=== PATIENT | female | born 1960 | race Caucasian/White ===

== ENCOUNTER 2021-01-07 15:06 | Inpatient (IN) | payer MEDICARE, BC ==
[~2021-01-07] VITALS: Ht 154.9 cm; Wt 40.8 kg
--- NOTE | 2021-01-07 15:20 | NUR ---
Patient is in room 5. She is awake and alert. Sitter/observer at bedside.
[2021-01-07] MEDS ORDERED: ARIPIPRAZOLE 5 MG TABLET PO ONE (15:30)
[2021-01-07] MEDS ORDERED: ARIPIPRAZOLE 5 MG TABLET ONE (15:33)
[2021-01-07] MEDS ORDERED: CRAN425C6 PO (15:41)
[2021-01-07] MEDS ORDERED: BISA10SU61 RC (15:41)
[2021-01-07] MEDS ORDERED: ARIP5TAB10 PO (15:41)
[2021-01-07] MEDS ORDERED: DOCU100C36 PO (15:41)
[2021-01-07] MEDS ORDERED: LORA-258 PO (15:41)
[2021-01-07] MEDS ORDERED: CYCL5TAB PO (15:41)
[2021-01-07 15:43] LABS: HEMATOCRIT 39.5 % (31.2-41.9); MEAN CORPUSCULAR HEMOGLOBIN 30.3 uug (24.7-32.8); MEAN CORPUSCULAR VOLUME 87.7 fL (75.5-95.3); PLATELET COUNT (AUTO) 187 K/uL (179-408)
[2021-01-07 15:49] LABS: ETHANOL < 3 MG/DL (0-0)
[2021-01-07 15:58] LABS: CARBON DIOXIDE 25 mmol/L (21-32); CHLORIDE 102 mmol/L (98-107); GLUCOSE 146 mg/dL (74-106); POTASSIUM 3.5 mmol/L (3.5-5.1); UREA NITROGEN, BLOOD 26 mg/dL (7-18)
--- NOTE | 2021-01-07 15:58 | NUR ---
Covid swab sent to lab
[2021-01-07 16:02] LABS: ALANINE AMINOTRANSFERASE 17 U/L (14-59); ALKALINE PHOSPHATASE 86 U/L (50-136); ASPARTATE AMINOTRANSFERASE 9 U/L (15-37); BILIRUBIN,DIRECT 0.1 mg/dL (0.0-0.2); BILIRUBIN,TOTAL 0.3 mg/dL (0.2-1.0); TOTAL PROTEIN, SERUM 6.6 g/dL (6.4-8.2)
[2021-01-07 16:03] LABS: ACETAMINOPHEN < 2.0 ug/mL (10-30)
[2021-01-07] MEDS ORDERED: METH10TA2 PO (16:07)
[2021-01-07] MEDS ORDERED: ACET-2154 PO (16:07)
[2021-01-07] MEDS ORDERED: NA P133E RC (16:07)
[2021-01-07] MEDS ORDERED: MIRT-121 PO (16:07)
[2021-01-07] MEDS ORDERED: MAGN400O6 PO (16:07)
[2021-01-07] MEDS ORDERED: MAG-55 PO (16:07)
[2021-01-07] MEDS ORDERED: HYDR200T81 PO (16:07)
[2021-01-07] MEDS ORDERED: ALPR0.5T8 PO (16:07)
[2021-01-07] MEDS ORDERED: TEMA7.5C PO (16:07)
[2021-01-07] MEDS ORDERED: CARB15DR EACHEYE (16:07)
--- NOTE | 2021-01-07 16:49 | NUR ---
Patient ate some crackers and drank juice. Will call crisis team for eval. Sitter/observer still at bedside
--- NOTE | 2021-01-07 16:50 | NUR ---
Patient states some people are trying to "poison me with ricin"
--- NOTE | 2021-01-07 17:15 | NUR ---
I called Noemi from crisis team and spoke to her about need for psych eval. She will be arriving today for eval
[2021-01-07] MEDS ORDERED: ACETAMINOPHEN 325 MG TABLET PO PRN (18:30)
[2021-01-07] MEDS ORDERED: MAGNESIUM HYDROXIDE 30 ML LIQUID UDC PO PRN ×2 (18:30→21:45)
[2021-01-07] MEDS ORDERED: BISACODYL 10 MG SUPP.RECT RC PRN (18:30)
[2021-01-07] MEDS ORDERED: ALPRAZOLAM 0.25 MG TABLET PO ONE (18:45)
--- NOTE | 2021-01-07 18:50 | NUR ---
Patient is sitting up eating dinner. She states she is very nervous and is shaky. I notifed Marta Montero given as ordered
[2021-01-07] MEDS ORDERED: ALPRAZOLAM 0.5 MG TABLET ONE (18:52)
--- NOTE | 2021-01-07 19:02 | NUR ---
Noemi RN here for karlee blancas
--- NOTE | 2021-01-07 19:19 | NUR ---
Hand off report given to Vida
--- NOTE | 2021-01-07 19:25 | NUR ---
Pt. is awake, alert, and cooperative. Food and water provided. Sitter/observer at bedside.
[2021-01-07 20:00] VITALS: BP 120/72
--- NOTE | 2021-01-07 20:00 | NUR ---
Pt. resting. Sitter at bedside. Vss. Will continue to monitor.
--- NOTE | 2021-01-07 20:40 | NUR ---
Leda abel in [facility] - 01/07/21 at 2157 by GIOVANNY Report called to RN. Sanjiv
--- NOTE | 2021-01-07 20:40 | NUR ---
Report called to GRISELDA Keys.
[2021-01-07] MEDS ORDERED: BLOOD SUGAR DIAGNOSTIC 1 EACH STRIP VI ONE (21:45)
[2021-01-07] MEDS ORDERED: MAG HYDROX/AL HYDROX/SIMETH 30 ML LIQUID UDC PO PRN (21:45)
--- NOTE | 2021-01-07 21:50 | NUR ---
ADMITTED PATIENT IN MHU UNIT WITH DX OF PSYCHOSIS, 72 HOLD FOR GD, BELIEVES THAT THE NEIGHBORS ARE POISONING HER WITH RICIN, PARANOID/ DELUSIONAL. PATIENT ATTEMPTED TO AWOL FROM REHAB. PATIENT ALERT X3, AMBULATORY, CONTINENT, ISOLATIVE, REFUSED A FULL BODY CHECK. PATIENT STAYED IN HER ROOM, CALM AT THIS TIME, CONT TO MONITOR.
[2021-01-07] MEDS: METHADONE HCL 10 MG TABLET PO SCH (22:24)
[2021-01-08 08:23] VITALS: BP 96/59
[2021-01-08] MEDS: METHADONE HCL 10 MG TABLET PO SCH ×2 (08:34→20:41)
[2021-01-08] MEDS: DOCUSATE SODIUM 100 MG CAPSULE PO SCH (08:35)
[2021-01-08] MEDS: LORAZEPAM 0.5 MG TABLET PO PRN ×2 (08:42→15:20)
[2021-01-08] MEDS: HYDROXYCHLOROQUINE SULFATE 200 MG TABLET PO SCH (08:50)
[2021-01-08] MEDS: POLYVINYL ALCOHOL OPHT DROPS 15 ML BOTTLE OP SCH ×2 (09:24→16:35)
[2021-01-08] MEDS: CYCLOBENZAPRINE HCL 10 MG TABLET PO PRN ×2 (13:18→20:42)
[2021-01-08] MEDS ORDERED: VITAMINS A AND D OINT TP PRN (13:30)
--- NOTE | 2021-01-08 15:21 | NUR ---
Gps/Relay Engineer- Anxious, noted patient talking to herself, claimed she's trying to calm herself down. . Tends to closed her door, discouraged from doing so. Patient complained pain on her left sacrum area, noted redness, and small bump. requesting A&D aurelio. , encouraged pressure relief, stay off her back.
[2021-01-08 17:15] VITALS: BP 119/74
[2021-01-08] MEDS: ALPRAZOLAM 0.5 MG TABLET PO SCH (17:39)
[2021-01-08] MEDS: ARIPIPRAZOLE 5 MG TABLET PO SCH (18:45)
[2021-01-08] MEDS: MIRTAZAPINE 15 MG TABLET PO SCH (20:40)
[2021-01-08 21:55] VITALS: BP 106/55
[2021-01-08] MEDS: TEMAZEPAM 7.5 MG CAPSULE PO PRN (22:06)
[2021-01-09] MEDS: LORAZEPAM 0.5 MG TABLET PO PRN ×3 (02:26→18:19)
--- NOTE | 2021-01-09 04:52 | NUR ---
This patient has been requesting a continuos flow of PRN medications during the shift. Multiple complaints of pain and anxiety. This appeals writer is monitoring the patient closely and encouraging alternatives methods to pain relief other than narcotics. Patient continues to have delusional thinking that she is being poisoned by the neighbors with "Ricin ". With safety a priority, this appeals writer will also continue providing reality checks and discourage fixed delusions when needed.
--- NOTE | 2021-01-09 06:48 | NUR ---
Patient refused lab draw and shower this am. Total sleep hours were 5.00. Still with delusions but no behavior escalation. Monitoring pain and for safety.
[2021-01-09 07:30] VITALS: BP 108/70
[2021-01-09] MEDS: ALPRAZOLAM 0.5 MG TABLET PO SCH ×2 (08:17→16:30)
[2021-01-09] MEDS: METHADONE HCL 10 MG TABLET PO SCH ×2 (08:17→20:13)
[2021-01-09] MEDS: POLYVINYL ALCOHOL OPHT DROPS 15 ML BOTTLE OP SCH ×2 (08:17→16:30)
[2021-01-09] MEDS: HYDROXYCHLOROQUINE SULFATE 200 MG TABLET PO SCH ×2 (08:17→08:24)
[2021-01-09] MEDS: DOCUSATE SODIUM 100 MG CAPSULE PO SCH (08:17)
[2021-01-09] MEDS: ARIPIPRAZOLE 5 MG TABLET PO SCH (08:18)
[2021-01-09] MEDS: CYCLOBENZAPRINE HCL 10 MG TABLET PO PRN ×2 (10:01→18:19)
--- NOTE | 2021-01-09 14:00 | NUR ---
Gps/Medical Massage Therapist- Patient claimed she needs to be on stronger pain medication and should be available all the time. Informed patient she is on methadone q 12 hours, , and can have flexeril 5 mg po as needed, reviewed all medications , verbalized understanding. Gets anxious easily, but redirectable, staying in her room most of the time. Tend s to close her door, discouraged from doing so.
[2021-01-09 20:05] VITALS: BP 126/78
[2021-01-09] MEDS: MIRTAZAPINE 15 MG TABLET PO SCH (20:13)
[2021-01-09] MEDS: TEMAZEPAM 7.5 MG CAPSULE PO PRN (22:42)
[2021-01-10] MEDS: LORAZEPAM 0.5 MG TABLET PO PRN (05:14)
[2021-01-10] MEDS: CYCLOBENZAPRINE HCL 10 MG TABLET PO PRN ×2 (05:14→14:42)
--- NOTE | 2021-01-10 06:37 | NUR ---
Patient was medication seeking throughout the shift. Sleep hours were only 2.00 This patient had high energy and has a fixed delusion of people poisoning her " Even in the hospital. They are all around us . This is real ". This greeting card writer provided reassurance and encouraged reality based conversation. Continuing to monitor the patients pain and monitor her for safety.
[2021-01-10 07:30] VITALS: BP 113/68
[2021-01-10] MEDS: HYDROXYCHLOROQUINE SULFATE 200 MG TABLET PO SCH (09:25)
[2021-01-10] MEDS: METHADONE HCL 10 MG TABLET PO SCH ×2 (09:25→20:10)
[2021-01-10] MEDS: ALPRAZOLAM 0.5 MG TABLET PO SCH ×2 (09:25→16:48)
[2021-01-10] MEDS: DOCUSATE SODIUM 100 MG CAPSULE PO SCH (09:25)
[2021-01-10] MEDS: ARIPIPRAZOLE 5 MG TABLET PO SCH ×4 (09:25→20:15)
[2021-01-10] MEDS: POLYVINYL ALCOHOL OPHT DROPS 15 ML BOTTLE OP SCH ×2 (09:26→16:54)
[2021-01-10] MEDS: ENSURE ENLIVE (VAN) 240 ML LIQUID PO SCH ×2 (13:10→16:48)
--- NOTE | 2021-01-10 13:11 | NUR ---
PATIENT SEEN AND EXAMINED BY DR LEE WITH NEW ORDERS TO START 14 DAY HOLD AND NOTED
[2021-01-10 15:29] VITALS: BP 125/81
--- NOTE | 2021-01-10 15:35 | NUR ---
JOSE ROBERTO Initial Discharge Plan: Patient was recently residing at [facility] [address] [place] [address] ([phone]). Patient's father Vishnu Ren ([phone]) is involved in the patient's care. JOSE ROBERTO spoke with Madeleine sustainable design coordinator at [facility] who stated that they cannot accommodate the patient back at this time. JOSE ROBERTO will continue to work with patient, family and MD to ensure a safe and proper discharge plan.
--- NOTE | 2021-01-10 15:42 | NUR ---
Firearms Report: Loss Control Consultant completed and submitted a [employer] firearms report for 5150 grave disability certifications. A copy of report has been placed in patient chart.
--- NOTE | 2021-01-10 16:04 | NUR ---
REYMUNDO STINSON CLINICAL ENGINEERING MANAGER HERE SEEN PATIENT WITH NEW ORDERS AND NOTED
--- NOTE | 2021-01-10 17:23 | NUR ---
REMAIN COMPLIANT WITH MEDICATIONS AND CARE COOPERATIVE ALERT AND ORIENTED WILL CONTINUE TO OBSERVE.
[2021-01-10] MEDS: MIRTAZAPINE 15 MG TABLET PO SCH (20:09)
[2021-01-10 20:11] VITALS: BP 117/77
[2021-01-11] MEDS: TEMAZEPAM 7.5 MG CAPSULE PO PRN ×2 (00:07→22:14)
[2021-01-11] MEDS: LORAZEPAM 0.5 MG TABLET PO PRN ×2 (04:19→12:00)
--- NOTE | 2021-01-11 05:17 | NUR ---
1930 ASSUMED CARE OF PATIENT. PATIENT ALERT AND ORIENTED TIMES 3. VITAL SIGNS STABLE. PATIENT HAS PAIN 8/10 GIVEN [facility] SCHEDULED FOR PAIN. 2100 PATIENT COMPLIANT WITH ALL MEDICATIONS. PATIENT KICKING ON WALL AND STATES "THEY ARE UP THERE MAKING SUCH A RACKET ON THE ROOF." 0419 PATIENT UP MOST OF THE NIGHT PACING IN [place] AND KICKING THE WALL. PATIENT STATES "THEY'RE ARE PEOPLE OUT THERE FILMING ME. THERE IS A SILVER FACE LOOKING AT ME. ALL NIGHT THE DRONES HAVE BEEN FILMING ME AND THEY KEEP MAKING ALL THIS NOISE. PATIENT GIVEN ATIVAN PER DR ORDERS FOR ANXIETY. 0500 PATIENT IN BED RESTING AT THIS TIME WITH NO SIGN OR SYMPTOMS AT THIS TIME.
[2021-01-11 07:30] VITALS: BP 114/69
[2021-01-11] MEDS: DOCUSATE SODIUM 100 MG CAPSULE PO SCH (08:46)
[2021-01-11] MEDS: METHADONE HCL 10 MG TABLET PO SCH ×2 (08:46→20:42)
[2021-01-11] MEDS: ALPRAZOLAM 0.5 MG TABLET PO SCH ×2 (08:46→17:38)
[2021-01-11] MEDS: POLYVINYL ALCOHOL OPHT DROPS 15 ML BOTTLE OP SCH ×2 (08:46→17:38)
[2021-01-11] MEDS: ARIPIPRAZOLE 5 MG TABLET PO SCH ×4 (08:47→20:38)
[2021-01-11] MEDS: HYDROXYCHLOROQUINE SULFATE 200 MG TABLET PO SCH (08:48)
[2021-01-11] MEDS: ENSURE ENLIVE (VAN) 240 ML LIQUID PO SCH ×3 (08:48→17:33)
--- NOTE | 2021-01-11 10:30 | NUR ---
Pt states that she had x4 diarrhea. Asking for a medication to stop her diarrhea.
--- NOTE | 2021-01-11 11:30 | NUR ---
Spoke With ÁNGELA BLACK. instructed pt that i will give her her immodium if i see her diarrhea that she is claiming. secondary to questionable diarrhea earlier - no smell in room , no streak of bm from toilet. Spoke with PULP MILL TEAM LEADER to check pt's claim of diarrhea. Pt aware that she needs to show her BMs
[2021-01-11] MEDS: CYCLOBENZAPRINE HCL 10 MG TABLET PO PRN (12:00)
[2021-01-11 15:18] VITALS: BP 137/87
--- NOTE | 2021-01-11 18:30 | NUR ---
No BMs seen. PT hyperverbal and pacing in hallway.
[2021-01-11] MEDS: MIRTAZAPINE 15 MG TABLET PO SCH (20:38)
[2021-01-11 20:51] VITALS: BP 104/63
--- NOTE | 2021-01-12 06:25 | NUR ---
Patient slept approximately 7 hours.No c/o diarrhea.No behavioral issues noted.
[2021-01-12 07:30] VITALS: BP 113/70
[2021-01-12] MEDS: ALPRAZOLAM 0.5 MG TABLET PO SCH ×2 (08:07→16:50)
[2021-01-12] MEDS: HYDROXYCHLOROQUINE SULFATE 200 MG TABLET PO SCH (08:07)
[2021-01-12] MEDS: METHADONE HCL 10 MG TABLET PO SCH ×2 (08:07→20:07)
[2021-01-12] MEDS: DOCUSATE SODIUM 100 MG CAPSULE PO SCH (08:07)
[2021-01-12] MEDS: POLYVINYL ALCOHOL OPHT DROPS 15 ML BOTTLE OP SCH ×2 (08:08→16:51)
[2021-01-12] MEDS: ARIPIPRAZOLE 5 MG TABLET PO SCH ×3 (08:08→16:51)
[2021-01-12] MEDS: ENSURE ENLIVE (VAN) 240 ML LIQUID PO SCH ×3 (08:09→16:51)
[2021-01-12] MEDS: CYCLOBENZAPRINE HCL 10 MG TABLET PO PRN (08:56)
[2021-01-12] MEDS ORDERED: ARIPIPRAZOLE 5 MG TABLET PO ONE (09:45)
--- NOTE | 2021-01-12 09:53 | NUR ---
JOSE ROBERTO Individual Intervention: SW met with patient's today for brief individual counseling to address patient's presenting problem paranoid thought process. Patient presents with anxious mood and congruent affect. Patient is fidgety and stating that her roommate is "making me anxious". Patient isolating herself in her room and refusing to join group activities. SW will continue to remain available for patient for continued supportive counseling.
--- NOTE | 2021-01-12 11:27 | NUR ---
Court Hearing: Patient's court hearing for 6840 was today and it was upheld for GD.
[2021-01-12] MEDS: LORAZEPAM 0.5 MG TABLET PO PRN (13:37)
[2021-01-12] MEDS: LOPERAMIDE HCL 2 MG CAPSULE PO PRN ×2 (15:13→22:18)
[2021-01-12 16:00] VITALS: BP 125/82
[2021-01-12] MEDS: MIRTAZAPINE 15 MG TABLET PO SCH (20:07)
[2021-01-12 20:22] VITALS: BP 115/72
[2021-01-12] MEDS: TEMAZEPAM 7.5 MG CAPSULE PO PRN (22:18)
--- NOTE | 2021-01-13 06:24 | NUR ---
Pt slept a total of 3.30 hours. Denies SOB or discomfort at this time. Exhibited drug seeking behavior, requesting all PRNs and complaining that we do not give her enough medication. Otherwise pleasant and cooperative. Denies SI or HI. Safety and comfort provided throughout the night. No other issues or concerns at this time, will endorse to day shift.
[2021-01-13 07:30] VITALS: BP 118/69
[2021-01-13] MEDS: DOCUSATE SODIUM 100 MG CAPSULE PO SCH (08:24)
[2021-01-13] MEDS: HYDROXYCHLOROQUINE SULFATE 200 MG TABLET PO SCH (08:24)
[2021-01-13] MEDS: ARIPIPRAZOLE 5 MG TABLET PO SCH ×3 (08:24→16:29)
[2021-01-13] MEDS: ALPRAZOLAM 0.5 MG TABLET PO SCH (08:24)
[2021-01-13] MEDS: METHADONE HCL 10 MG TABLET PO SCH ×2 (08:25→20:19)
[2021-01-13] MEDS: POLYVINYL ALCOHOL OPHT DROPS 15 ML BOTTLE OP SCH ×2 (08:28→16:29)
[2021-01-13] MEDS: ENSURE ENLIVE (VAN) 240 ML LIQUID PO SCH ×3 (08:29→16:29)
--- NOTE | 2021-01-13 09:47 | NUR ---
JOSE ROBERTO SNF Referral: JOSE ROBERTO faxed patient's referral packet to [address] [address] ( ). JOSE ROBERTO spoke with Susanne stockroom coordinator at the facility who will review referral.
[2021-01-13] MEDS: CYCLOBENZAPRINE HCL 10 MG TABLET PO PRN (10:15)
[2021-01-13] MEDS: BENZTROPINE MESYLATE 0.5 MG TABLET PO SCH ×3 (10:15→16:29)
[2021-01-13 16:00] VITALS: BP 114/71
--- NOTE | 2021-01-13 18:52 | NUR ---
Gps/Car Body Designer- Called Dr Peterson re- patient requesting to have her clonopin now instead of bedtime claimed " this is bedtime call my Psychiatrist now" in demanding mood. explained to patient , anxious , does not want to accept explanation .
[2021-01-13 20:13] VITALS: BP 116/70
[2021-01-13] MEDS: MIRTAZAPINE 15 MG TABLET PO SCH (20:19)
[2021-01-13] MEDS: CLONAZEPAM 0.5 MG TABLET PO PRN (20:19)
--- NOTE | 2021-01-14 06:26 | NUR ---
pt slept for 7 hours; initially asking for klonopin at start of shift; continue to monitor; continue plan of care.
[2021-01-14] MEDS: HYDROXYCHLOROQUINE SULFATE 200 MG TABLET PO SCH (08:32)
[2021-01-14] MEDS: METHADONE HCL 10 MG TABLET PO SCH ×2 (08:33→20:11)
[2021-01-14] MEDS: ARIPIPRAZOLE 5 MG TABLET PO SCH ×3 (08:33→16:54)
[2021-01-14] MEDS: BENZTROPINE MESYLATE 0.5 MG TABLET PO SCH ×3 (08:33→16:54)
[2021-01-14] MEDS: DOCUSATE SODIUM 100 MG CAPSULE PO SCH (08:39)
[2021-01-14] MEDS: POLYVINYL ALCOHOL OPHT DROPS 15 ML BOTTLE OP SCH ×2 (08:39→16:59)
[2021-01-14 08:43] VITALS: BP 121/83
[2021-01-14] MEDS: ENSURE ENLIVE (VAN) 240 ML LIQUID PO SCH ×3 (09:12→16:57)
[2021-01-14] MEDS: CLONAZEPAM 0.5 MG TABLET PO SCH ×2 (12:15→16:55)
--- NOTE | 2021-01-14 13:30 | NUR ---
Gps/Residential Carpenter- Patient anxious, but redirectable, worried , that she does not have clonopin po. during the day , patient was reassured , was informed Dr Peterson will take care of all her concerns . Encouraged attending her group therapy .
--- NOTE | 2021-01-14 14:39 | NUR ---
JOSE ROBERTO Family Contact: SW spoke with patient's father, Dr. Ren ([phone]) with Dr. Peterson and discussed treatment and discharge plan. Dr. Peterson informed Dr. Ren that patient may return home if patient is stable enough or may require a short term SNF placement. Dr. Ren is agreeable with both plans.
[2021-01-14 17:07] VITALS: BP 106/69
[2021-01-14] MEDS: MIRTAZAPINE 15 MG TABLET PO SCH (20:07)
[2021-01-14 20:15] VITALS: BP 103/69
[2021-01-14] MEDS: CLONAZEPAM 0.5 MG TABLET PO PRN (22:47)
--- NOTE | 2021-01-15 05:31 | NUR ---
Pt asleep at this time, no s/s of distress, no change in LOC. Manifested relief of pain after interventions. Requested Klonopin PRN--administered per MD order. Pt able to sleep well during the shift. Q15min checks done to ensure safety.
[2021-01-15 07:57] VITALS: BP 99/55
[2021-01-15] MEDS: HYDROXYCHLOROQUINE SULFATE 200 MG TABLET PO SCH (08:45)
[2021-01-15] MEDS: DOCUSATE SODIUM 100 MG CAPSULE PO SCH (08:46)
[2021-01-15] MEDS: CLONAZEPAM 0.5 MG TABLET PO SCH ×3 (08:46→16:46)
[2021-01-15] MEDS: METHADONE HCL 10 MG TABLET PO SCH ×2 (08:46→20:50)
[2021-01-15] MEDS: ARIPIPRAZOLE 5 MG TABLET PO SCH ×3 (08:47→16:47)
[2021-01-15] MEDS: BENZTROPINE MESYLATE 0.5 MG TABLET PO SCH ×3 (08:47→16:46)
[2021-01-15] MEDS: ENSURE ENLIVE (VAN) 240 ML LIQUID PO SCH ×3 (08:48→16:47)
[2021-01-15] MEDS: POLYVINYL ALCOHOL OPHT DROPS 15 ML BOTTLE OP SCH ×2 (08:48→16:47)
[2021-01-15 16:48] VITALS: BP 105/60
[2021-01-15 19:51] VITALS: BP 101/53
[2021-01-15] MEDS: MIRTAZAPINE 15 MG TABLET PO SCH (20:47)
[2021-01-15] MEDS: CLONAZEPAM 0.5 MG TABLET PO PRN (22:24)
--- NOTE | 2021-01-16 05:56 | NUR ---
Received Pt awake in bed, pleasant and polite on approach. Pt was alert and oriented x3 but gave minimal disclosure. Pt exhibited guarded affect and and appeared hypervigilant at times during the initial assessment. About 30 minutes later, EVS came into her room to clean the other bed, and Pt became aggressive and upset with him. When staff entered the room, Pt told this conventional underwriter "you are sending in your people to clean this place with ricin! You want to poison me!" When redirection was attempted, Pt accused this write of filming her and "being one of them". Pt was paranoid, delusional, and accusatory toward staff and yelled that she "does not want a roommate". On the 3rd encounter with the Pt, she was again polite and in a good mood. Mood is labile, and appears internally preoccupied, but denies AH/VH. Denies SI/HI and verbally contracts for safety. VS stable, chronic pain effectively controlled with Methadone. Klonopin 0.5mg administered for anxiety.
[2021-01-16 07:30] VITALS: BP 92/54
[2021-01-16 07:59] LABS: CREATININE 0.8 mg/dL (0.6-1.3); POTASSIUM 4.8 mmol/L (3.5-5.1)
[2021-01-16] MEDS: ARIPIPRAZOLE 5 MG TABLET PO SCH ×3 (08:46→16:25)
[2021-01-16] MEDS: HYDROXYCHLOROQUINE SULFATE 200 MG TABLET PO SCH (08:46)
[2021-01-16] MEDS: POLYVINYL ALCOHOL OPHT DROPS 15 ML BOTTLE OP SCH ×2 (08:46→16:25)
[2021-01-16] MEDS: METHADONE HCL 10 MG TABLET PO SCH ×2 (08:47→20:14)
[2021-01-16] MEDS: BENZTROPINE MESYLATE 0.5 MG TABLET PO SCH ×3 (08:47→16:25)
[2021-01-16] MEDS: CLONAZEPAM 0.5 MG TABLET PO SCH ×3 (08:47→16:25)
[2021-01-16] MEDS: ENSURE ENLIVE (VAN) 240 ML LIQUID PO SCH ×3 (08:47→16:25)
[2021-01-16] MEDS: DOCUSATE SODIUM 100 MG CAPSULE PO SCH (08:48)
[2021-01-16 15:17] VITALS: BP 117/71
[2021-01-16] MEDS: MIRTAZAPINE 15 MG TABLET PO SCH (20:14)
[2021-01-16 20:16] VITALS: BP 111/70
[2021-01-16] MEDS: CLONAZEPAM 0.5 MG TABLET PO PRN (21:50)
--- NOTE | 2021-01-17 05:53 | NUR ---
Little change from the previous night, remains hypervigilant and internally preoccupied. C/o increased anxiety, Klonopin 0.5mg administered at 2150 with good effect. Denies SI/HI, verbally contracts for safety. Chronic generalized pain effectively controlled with scheduled Methadone 10mg. VS stable.
[2021-01-17 08:30] VITALS: BP 106/66
[2021-01-17] MEDS: METHADONE HCL 10 MG TABLET PO SCH ×2 (08:33→20:15)
[2021-01-17] MEDS: CLONAZEPAM 0.5 MG TABLET PO SCH ×3 (08:34→16:55)
[2021-01-17] MEDS: HYDROXYCHLOROQUINE SULFATE 200 MG TABLET PO SCH (08:34)
[2021-01-17] MEDS: ARIPIPRAZOLE 5 MG TABLET PO SCH ×3 (08:34→16:55)
[2021-01-17] MEDS: BENZTROPINE MESYLATE 0.5 MG TABLET PO SCH ×3 (08:34→16:55)
[2021-01-17] MEDS: POLYVINYL ALCOHOL OPHT DROPS 15 ML BOTTLE OP SCH ×2 (08:34→16:56)
[2021-01-17] MEDS: DOCUSATE SODIUM 100 MG CAPSULE PO SCH (08:34)
[2021-01-17] MEDS: ENSURE ENLIVE (VAN) 240 ML LIQUID PO SCH ×3 (08:36→16:55)
--- NOTE | 2021-01-17 14:36 | NUR ---
SW NOTE: SE spoke with patient and requested if she would allow us to speak with her brother per Dr. Peterson's request. Patient did ot consent to speak with her brother Kevin Mercedes ([phone]).
--- NOTE | 2021-01-17 14:37 | NUR ---
JOSE ROBERTO Family Contact: JOSE ROBERTO spoke with patient's father, Dr. Ren ([phone]) who is requesting to have the patient released to his custody. JOSE ROBERTO advised that she will have to discuss this with Dr. Peterson and will call him tomorrow with further information.
--- NOTE | 2021-01-17 14:39 | NUR ---
SW SNF Referral: Faxed patient's referral packet attention attention to [facility] at [facility] ([phone]) and patient is accepted for placement.
[2021-01-17 15:28] VITALS: BP 100/62
[2021-01-17] MEDS: MIRTAZAPINE 15 MG TABLET PO SCH (20:13)
[2021-01-17 20:15] VITALS: BP 138/84
[2021-01-17] MEDS: CLONAZEPAM 0.5 MG TABLET PO PRN (22:00)
[2021-01-18 07:30] VITALS: BP 100/62
[2021-01-18] MEDS: BENZTROPINE MESYLATE 0.5 MG TABLET PO SCH ×3 (08:35→17:19)
[2021-01-18] MEDS: ARIPIPRAZOLE 5 MG TABLET PO SCH ×3 (08:35→17:19)
[2021-01-18] MEDS: DOCUSATE SODIUM 100 MG CAPSULE PO SCH (08:36)
[2021-01-18] MEDS: CLONAZEPAM 0.5 MG TABLET PO SCH ×3 (08:36→17:19)
[2021-01-18] MEDS: METHADONE HCL 10 MG TABLET PO SCH ×2 (08:36→20:14)
[2021-01-18] MEDS: POLYVINYL ALCOHOL OPHT DROPS 15 ML BOTTLE OP SCH ×2 (08:37→17:20)
[2021-01-18] MEDS: ENSURE ENLIVE (VAN) 240 ML LIQUID PO SCH ×3 (08:37→17:19)
[2021-01-18] MEDS: HYDROXYCHLOROQUINE SULFATE 200 MG TABLET PO SCH (09:36)
--- NOTE | 2021-01-18 10:38 | NUR ---
JOSE ROBERTO APS REPORT: JOSE ROBERTO submitted and Adult Protective Services Report. Your report (Intake ID [id number]) was successfully submitted on 01/18/2021 at 10:38 AM. Addendum: 01/18/21 at 1043 by ALIVIA DORADO A copy of the report has been placed in the patient's chart.
--- NOTE | 2021-01-18 10:39 | NUR ---
JOSE ROBERTO NOTE/Family Contact: JOSE ROBERTO spoke with Dr. Peterson regarding patient's father Dr. Ren ([phone]) requesting to take the patient home. Dr. Peterson stated that she is recommending a SNF placement for the patient however if patient is stable she may return home as well with aftercare arranged. JOSE ROBERTO spoke with patient's father, Dr. Ren ([phone]) who is requesting to have the patient released to his custody. JOSE ROBERTO informed that the doctor is recommending SNF placement upon discharge for a short stay however Dr. Ren refuses placement for the patient. Dr. Ren states that he tales full responsibility of the patient and will be taking care of her care and aftercare needs. Dr. Ren stated that he is willing to work with the doctor and take the patient home once Dr. Peterson states she is stable and can be discharged.
--- NOTE | 2021-01-18 14:14 | NUR ---
JOSE ROBERTO Coordination of Care: Per patient's request, SW reached out to [facility] [address], [place] [address] ([phone]) and spoke with the information line about making a referral and appointment for a new patient. The dinkey motor operator took this high school social studies tutor's information to have someone from the center call this SW. Addendum: 01/18/21 at 1453 by ALIVIA DORADO JOSE ROBERTO received a call back from [facility] ( ) who stated that they provide inpatient and outpatient programs. However at this time [facility] stated there is a wait list which is about 3-4 weeks out and their program costs start at $36,500 a month.
--- NOTE | 2021-01-18 14:17 | NUR ---
JOSE ROBERTO Coordination of Care: SW contacted patient's psychiatrist Dr. Ezequiel Mcpherson [address] [place] [address] ([phone]) to make an appointment for the patient next week. Left a voicemail and waiting for a return call.
--- NOTE | 2021-01-18 14:53 | NUR ---
JOSE ROBERTO Family Contact: JOSE ROBERTO spoke with patient's father Dr. Ren ([phone]) and informed of the wait list and cost for [facility]. JOSE ROBERTO provided an alternative treatment program at [facility] that accepts insurance and does not have a wait list. Dr. Ren was appreciative and stated he will look into it and let this SW know his thoughts.
[2021-01-18 15:21] VITALS: BP 110/70
--- NOTE | 2021-01-18 15:54 | NUR ---
JOSE ROBERTO Individual Note: SW met with patient and discussed discharge planning. Patient presents anxious and wanted to clarify her discharge plans. SW discussed SNF options and home options with outpatient treatment program. Patient states she will think about both options and talk to her father.
[2021-01-18 20:08] VITALS: BP 102/56
[2021-01-18] MEDS: MIRTAZAPINE 15 MG TABLET PO SCH (20:12)
[2021-01-18] MEDS: CLONAZEPAM 0.5 MG TABLET PO PRN (22:41)
[2021-01-19 07:30] VITALS: BP 102/65
--- NOTE | 2021-01-19 08:30 | NUR ---
AWAKE ALERT AND ORIENTED AMBULATORY SELF CARE COMPLIANT WITH MEDICATIONS AND CARE DENIES SI ENCOURAGED TO GET OUT OF HER BED AND PARTICIPATE IN ACTIVITIES IN THE D/ROOM AND SHE EXPRESSED UNDERSTANDING
[2021-01-19] MEDS: DOCUSATE SODIUM 100 MG CAPSULE PO SCH (08:59)
[2021-01-19] MEDS: HYDROXYCHLOROQUINE SULFATE 200 MG TABLET PO SCH (08:59)
[2021-01-19] MEDS: BENZTROPINE MESYLATE 0.5 MG TABLET PO SCH ×3 (08:59→16:33)
[2021-01-19] MEDS: ARIPIPRAZOLE 5 MG TABLET PO SCH ×3 (09:00→16:33)
[2021-01-19] MEDS: METHADONE HCL 10 MG TABLET PO SCH ×2 (09:00→20:21)
[2021-01-19] MEDS: CLONAZEPAM 0.5 MG TABLET PO SCH ×3 (09:00→16:34)
[2021-01-19] MEDS: POLYVINYL ALCOHOL OPHT DROPS 15 ML BOTTLE OP SCH ×2 (09:01→17:22)
[2021-01-19] MEDS: ENSURE ENLIVE (VAN) 240 ML LIQUID PO SCH ×3 (09:07→16:34)
--- NOTE | 2021-01-19 10:07 | NUR ---
JOSE ROBERTO APS Contact: JOSE ROBERTO received a call from Jose Liu from APS ([phone]) who was inquiring about where the patient is currently. JOSE ROBERTO informed patient is still at [facility]. Jose stated they will follow up once a social services will be making a visit to see the patient.
--- NOTE | 2021-01-19 12:41 | NUR ---
JOSE ROBERTO APS Contact: JOSE ROBERTO received a call from Ramona Miller Search Optimization Analyst from [facility] ([phone]) who stated that she would like to visit the patient possibly tomorrow to asses.
--- NOTE | 2021-01-19 13:00 | NUR ---
PATIENTS DAD HERE VISITING PATIENT IS IN GOOD SPIRITS COMPLIANT WITH MEDICATIONS DENIES SI WILL CONTINUE TO OBSERVE AND PROVIDE COMFORT
[2021-01-19 16:00] VITALS: BP 111/80
--- NOTE | 2021-01-19 17:43 | NUR ---
DUE MEDICATIONS GIVEN PATIENT STATED THAT SHE WAS FEELING ANXIOUS BECAUSE HER ROOM MATE WAS DISCHARGED AND SHE WAS WORRYING ABOUT WHO WILL BE HER NEXT ROOM MATE REASSURED HER THAT THE MEDS THAT I JUST GAVE HER HAS KLONOPIN WHICH SHOULD RELAX HER AND SHE EXPRESSED UNDERSTANDING
[2021-01-19 20:19] VITALS: BP 112/65
[2021-01-19] MEDS: MIRTAZAPINE 15 MG TABLET PO SCH (20:21)
[2021-01-19] MEDS: CLONAZEPAM 0.5 MG TABLET PO PRN (22:04)
[2021-01-20 07:30] VITALS: BP 100/61
[2021-01-20] MEDS: ARIPIPRAZOLE 5 MG TABLET PO SCH ×3 (08:51→17:17)
[2021-01-20] MEDS: HYDROXYCHLOROQUINE SULFATE 200 MG TABLET PO SCH (08:51)
[2021-01-20] MEDS: CLONAZEPAM 0.5 MG TABLET PO SCH ×4 (08:52→21:19)
[2021-01-20] MEDS: METHADONE HCL 10 MG TABLET PO SCH (08:52)
[2021-01-20] MEDS: BENZTROPINE MESYLATE 0.5 MG TABLET PO SCH ×3 (08:52→17:17)
[2021-01-20] MEDS: DOCUSATE SODIUM 100 MG CAPSULE PO SCH (08:53)
[2021-01-20] MEDS: ENSURE ENLIVE (VAN) 240 ML LIQUID PO SCH ×3 (09:00→17:00)
[2021-01-20] MEDS: POLYVINYL ALCOHOL OPHT DROPS 15 ML BOTTLE OP SCH ×2 (09:00→17:00)
--- NOTE | 2021-01-20 14:03 | NUR ---
JOSE ROBERTO APS Contact: Ramona Miller Finance Teacher from [facility] ([phone]) and Shena CID who came and interviewed with the patient this afternoon at 1PM.
--- NOTE | 2021-01-20 14:07 | NUR ---
JOSE ROBERTO Coordination of Care: JOSE ROBERTO spoke with Braxton Carbajal from [facility] (P [phone] F [phone]) and faxed him the patient's clinicals for review and possible admission to their treatment program.
--- NOTE | 2021-01-20 15:00 | NUR ---
Gps/Bale Stacker- Minimal interactions with her selected peers, cooperative with staff, had been meds. compliant. Had been in and out of her group therapy this am, tends to close her door, discouraged patient from doing so.
[2021-01-20 16:00] VITALS: BP 96/45
[2021-01-20 20:15] VITALS: BP 97/55
[2021-01-20] MEDS: MIRTAZAPINE 15 MG TABLET PO SCH (21:15)
--- NOTE | 2021-01-21 05:53 | NUR ---
GPS: Pt slept a total of 5.15 hours Through the night. Denies SOB or discomfort at this time. pleasant and cooperative. Denies SI or HI. Safety and comfort provided throughout the night. No other issues or concerns at this time, resting on bed comfortably.
[2021-01-21 07:30] VITALS: BP 91/55
[2021-01-21] MEDS: POLYVINYL ALCOHOL OPHT DROPS 15 ML BOTTLE OP SCH ×2 (08:08→16:37)
[2021-01-21] MEDS: HYDROXYCHLOROQUINE SULFATE 200 MG TABLET PO SCH (08:09)
[2021-01-21] MEDS: DOCUSATE SODIUM 100 MG CAPSULE PO SCH (08:09)
[2021-01-21] MEDS: ARIPIPRAZOLE 5 MG TABLET PO SCH ×4 (08:09→16:35)
[2021-01-21] MEDS: BENZTROPINE MESYLATE 0.5 MG TABLET PO SCH ×3 (08:09→16:36)
[2021-01-21] MEDS: ENSURE ENLIVE (VAN) 240 ML LIQUID PO SCH ×3 (09:00→16:36)
--- NOTE | 2021-01-21 10:22 | NUR ---
JOSE ROBERTO APS Contact: JOSE ROBERTO received a phone call from Ramona Miller Pastry Cook Helper from [facility] ([phone]) who came and interviewed with the patient yesterday due to this Social Workers APS report. JOSE ROBERTO requested information pertaining to her visit and her input on the matter. Ramona stated that she cannot disclose any information or give her input as it is "HIPPA'. JOSE ROBERTO discussed this matter with Love Thompson if this is appropriate and she advised to request to speak with her supervisor lamp shades. JOSE ROBERTO contacted Ramona White Worker from [facility] ([phone]) and left a voicemail requesting a call back to discuss the case and to provide her supervisor lamp shades's information.
--- NOTE | 2021-01-21 11:34 | NUR ---
JOSE ROBERTO Coordination of Care: SW contacted patient's psychiatrist Dr. Ezequiel Mcpherson [address] [place] [address] ([phone]) to make an appointment for the patient next week. SW left a voicemail to make an appointment next week and waiting for a return call.
--- NOTE | 2021-01-21 11:35 | NUR ---
JOSE ROBERTO APS Contact: JOSE ROBERTO spoke with Ramona CID from APS ([phone]) irrigation supervisor Jose Liu ([phone]) and he stated that once an APS social service technician has made contact with a patient or client, they can no longer speak with the person who reported or any green party involved. He states that if we feel the patient is unsafe to be discharge home but there is no conservator or DPOA to make decision, we can make another APS report upon discharge and they will follow up with the patient at home.
[2021-01-21] MEDS: CLONAZEPAM 0.5 MG TABLET PO SCH ×2 (13:16→16:36)
[2021-01-21 16:36] VITALS: BP 101/59
[2021-01-21 20:21] VITALS: BP 113/66
[2021-01-21] MEDS: ACETAMINOPHEN 325 MG TABLET PO PRN (20:37)
[2021-01-21] MEDS: MIRTAZAPINE 15 MG TABLET PO SCH (20:37)
[2021-01-21] MEDS: CLONAZEPAM 0.5 MG TABLET PO PRN (22:34)
--- NOTE | 2021-01-22 01:24 | NUR ---
RECEIVED PATIENT IN HER ROOM. MINIMAL INTERACTION BUT ABLE TO MAKE HER NEEDS KNOWN. REQUESTED KLONIPIN 0.5 MG @ 22:35 WITH GOOD EFFECT.DENIES SI/HI. COMPLIANT WITH MEDS AND CARE.SAFETY PROTOCOLS IN PLACE. WILL CONTINUE TO MONITOR.
[2021-01-22] MEDS: CLONAZEPAM 0.5 MG TABLET PO PRN ×2 (03:53→21:44)
--- NOTE | 2021-01-22 06:54 | NUR ---
SHE SLEPT FOR 3;15 HOURS. GIVEN KLONIPIN AT 03;55
[2021-01-22 07:21] LABS: HEMATOCRIT 37.3 % (31.2-41.9); MEAN CORPUSCULAR HEMOGLOBIN 30.2 uug (24.7-32.8); MEAN CORPUSCULAR VOLUME 89.9 fL (75.5-95.3); PLATELET COUNT (AUTO) 201 K/uL (179-408)
[2021-01-22 07:29] LABS: CREATININE 0.8 mg/dL (0.6-1.3); PHOSPHOROUS 4.8 mg/dL (2.5-4.9); POTASSIUM 4.8 mmol/L (3.5-5.1)
[2021-01-22 08:06] VITALS: BP 96/59
[2021-01-22] MEDS: DOCUSATE SODIUM 100 MG CAPSULE PO SCH (08:46)
[2021-01-22] MEDS: BENZTROPINE MESYLATE 0.5 MG TABLET PO SCH ×3 (08:46→17:23)
[2021-01-22] MEDS: CLONAZEPAM 0.5 MG TABLET PO SCH ×3 (08:46→17:23)
[2021-01-22] MEDS: HYDROXYCHLOROQUINE SULFATE 200 MG TABLET PO SCH (08:46)
[2021-01-22] MEDS: ARIPIPRAZOLE 5 MG TABLET PO SCH (08:47)
[2021-01-22] MEDS: ENSURE ENLIVE (VAN) 240 ML LIQUID PO SCH ×3 (08:48→17:00)
[2021-01-22] MEDS: POLYVINYL ALCOHOL OPHT DROPS 15 ML BOTTLE OP SCH (08:56)
[2021-01-22] MEDS: ARIPIPRAZOLE 10 MG TABLET PO SCH ×2 (13:33→17:23)
[2021-01-22] MEDS: POLYVINYL ALCOHOL OPHT DROPS 15 ML BOTTLE EACHEYE SCH (13:34)
--- NOTE | 2021-01-22 15:00 | NUR ---
Gps/Client Resource Specialist- Wants to shower early r/t her father will be in to visit her after 1500 pm. Cooperative, had been compliant, interacting with her peers.
[2021-01-22 16:45] VITALS: BP 119/62
[2021-01-22 19:53] VITALS: BP 97/64
--- NOTE | 2021-01-22 20:00 | NUR ---
Received patient in the hallway. She is noted A/O x 3 she is able to verbalized feelings. She stated she is "doing better". she added, "I just can't sleep at night because there are too many noises here at night". Affect is blunted, mood is irritable, She denies SI/HI/VH/AH, she is able to verbally CFS/ she is reassured for her safety. V/S stable. Safety and fall precaution in place. will continue to monitor.
[2021-01-22] MEDS: MIRTAZAPINE 15 MG TABLET PO SCH (21:06)
[2021-01-23 07:30] VITALS: BP 113/75
[2021-01-23] MEDS: HYDROXYCHLOROQUINE SULFATE 200 MG TABLET PO SCH (08:50)
[2021-01-23] MEDS: BENZTROPINE MESYLATE 0.5 MG TABLET PO SCH ×3 (08:51→17:03)
[2021-01-23] MEDS: DOCUSATE SODIUM 100 MG CAPSULE PO SCH (08:51)
[2021-01-23] MEDS: CLONAZEPAM 0.5 MG TABLET PO SCH ×3 (08:51→17:03)
[2021-01-23] MEDS: POLYVINYL ALCOHOL OPHT DROPS 15 ML BOTTLE EACHEYE SCH ×2 (08:55→17:00)
[2021-01-23] MEDS: ARIPIPRAZOLE 10 MG TABLET PO SCH ×3 (08:56→17:03)
[2021-01-23] MEDS: ENSURE ENLIVE (VAN) 240 ML LIQUID PO SCH ×3 (09:00→17:03)
[2021-01-23] MEDS: ACETAMINOPHEN 325 MG TABLET PO PRN (14:38)
[2021-01-23 16:08] VITALS: BP 115/86
[2021-01-23 20:00] VITALS: BP 101/60
--- NOTE | 2021-01-23 20:00 | NUR ---
RECEIVED PATIENT IN THE HALLWAY. SHE IS NOTED A/O X 3. SHE IS NOTED LESS ISOLATIVE, LESS WITHDRAWN, LESS IRRITABLE. CONTINUE INTRUSIVE AND SOMEWHAT MANIPULATIVE. SHE DENIED SI/HI/VH/AH. SHE IS ABLE TO VERBALLY CFS. V/S STABLE. SAFETY AND FALL PRECAUTION IN PLACE. PATIENT WAS GIVEN PO FLUIDS AND SNACKS. PT IS REASSURED FOR HER SAFETY. WILL CONTINUE TO MONITOR.
[2021-01-23] MEDS: MIRTAZAPINE 15 MG TABLET PO SCH (20:36)
[2021-01-23] MEDS: CLONAZEPAM 0.5 MG TABLET PO PRN (22:24)
[2021-01-24 07:30] VITALS: BP 115/72
--- NOTE | 2021-01-24 08:03 | NUR ---
Discharge Note: Patient will be discharged home [address] [place] [address]. Patients father, Dr. Ren ([phone]) will be providing transportation for the patient back home today at 11AM. Patient is alert and oriented x4 and is aware and agreeable with discharge plan. Patient denies suicidal or homicidal ideation. Patient denies visual or auditory hallucinations. Patient presents with appropriate mood and congruent affect. Patient will be following up with her Psychiatrist Dr. Ezequiel Mcpherson [address] [place] [address] ([phone]) and this social services director has left 2 voicemail requesting a follow up appointment. Patient will follow up post discharge. Patient will be following up with her Primary physician Dr. Quita Diaz [address], [place] [address] ([phone]) and has an appointment scheduled on Sunday at 3PM.
[2021-01-24] MEDS: BENZTROPINE MESYLATE 0.5 MG TABLET PO SCH (08:51)
[2021-01-24] MEDS: CLONAZEPAM 0.5 MG TABLET PO SCH (08:51)
[2021-01-24] MEDS: HYDROXYCHLOROQUINE SULFATE 200 MG TABLET PO SCH (08:51)
[2021-01-24] MEDS: ARIPIPRAZOLE 10 MG TABLET PO SCH (08:51)
[2021-01-24] MEDS: ENSURE ENLIVE (VAN) 240 ML LIQUID PO SCH (08:52)
[2021-01-24] MEDS: POLYVINYL ALCOHOL OPHT DROPS 15 ML BOTTLE EACHEYE SCH (08:52)
[2021-01-24] MEDS: DOCUSATE SODIUM 100 MG CAPSULE PO SCH (08:52)
--- NOTE | 2021-01-24 11:13 | NUR ---
GPS: Nursing Notes: Discharge Notes: Patient awake and responding to her name, compliant with her medications, following staff directions, cooperative with nursing care, A/Ox4, denies SI/HI, denies AH/VH, denies pain or discomfort at this time, denies SOB, discharge home with her father - Dr. Ren at [address] [place], [place] [id number]. Patient took all her belongings with her, Patient will be following up with her Psychiatrist Dr. Ezequiel Mcpherson [address] [place] [address] ([phone]). Patient will be following up with her Primary physician Dr. Quita Diaz [address] [place] [address] ([phone]) and has an appointment scheduled on Sunday at 3PM.
== END 2021-01-24 11:45 | disposition home or self-care (01) | DRG 885 ==
LOC: ER 15:06 → GPS 21:27
PROVIDERS: ADMIT Psychiatry & Neurology Psychiatry; ATTEND Nurse Practitioner Acute Care
DX: F33.3 Major depressive disorder, recurrent, severe with psychotic symptoms (principal); Z68.1 Body mass index [BMI] 19.9 or less, adult; K51.90 Ulcerative colitis, unspecified, without complications; E44.0 Moderate protein-calorie malnutrition; F41.9 Anxiety disorder, unspecified; G89.29 Other chronic pain; M19.90 Unspecified osteoarthritis, unspecified site; M81.0 Age-related osteoporosis without current pathological fracture; Z20.822 Contact with and (suspected) exposure to COVID-19; Z73.6 Limitation of activities due to disability; F29 Unspecified psychosis not due to a substance or known physiological condition; Z92.21 Personal history of antineoplastic chemotherapy; Z85.3 Personal history of malignant neoplasm of breast; Z79.899 Other long term (current) drug therapy
CPT/HCPCS: 36415; 83735; 84100; 85025; 93005; A4663; G0480